=== PATIENT | female | born 1955 ===

== ENCOUNTER 2021-04-11 11:06 | Outpatient (CLI) | payer MEDICARE, OTHER, SELFPAY ==
--- NOTE | 2021-04-11 11:15 | RT.EKG_ITS ---
APPROVED REPORT Exam: Resting ECG Reason for Exam: previous [place] Patient Location: O HR:62 bpm ECG Measurements Heart Rate 62 AXIS SC 206 P -3 QRSd 132 QRS 80 QT 474 T 106 QTc 482 Conclusion Sinus rhythm...normal P axis, V-rate 50- 99 Right bundle branch block...QRSd>120, terminal axis(90,270) Abnormal T, consider ischemia, lateral leads...T <-0.20mV, I aVL V5 V6 Baseline wander in lead(s) II
== END 2021-04-11 11:07 | disposition home or self-care (01) ==
LOC: DI.CARD 11:25
PROVIDERS: Visit Provider Internal Medicine Cardiovascular Disease
DX: I21.3 ST elevation (STEMI) myocardial infarction of unspecified site (principal)
CPT/HCPCS: 93010

== ENCOUNTER → 2021-04-11 11:06 | Outpatient (BNVA) | payer MEDICARE, OTHER, SELFPAY | PROVIDERS: Visit Provider Internal Medicine Cardiovascular Disease | DX: I21.3 ST elevation (STEMI) myocardial infarction of unspecified site (principal); I25.10 Atherosclerotic heart disease of native coronary artery without angina pectoris; E78.5 Hyperlipidemia, unspecified; Z95.818 Presence of other cardiac implants and grafts; I10 Essential (primary) hypertension | CPT/HCPCS: 93005; 99203 ==

== ENCOUNTER 2021-04-17 10:00 | Outpatient (RCR) | payer MEDICARE, OTHER, SELFPAY ==
--- OUTSIDE RECORDS SUMMARY | 2021-04-15 14:54 | XMS_ITS ---
:1955 Author Care Team Providers Name Role Phone GITA LAZO Primary Care Provider [phone] Allergies Code Code System Name Reaction Severity Status Onset NKDA ? Medications Name Status Start Date Stop Date ? ? amlodipine 10 mg tablet Completed ? 04/08/20 21 Take 1 tablet by mouth once daily amlodipine 10 mg-atorvastatin 20 mg tablet Completed ? 04/08/2021 xxx amlodipine 10 mg-benazepril 20 mg capsule Completed ? 04/08/2021 TAKE ONE CAPSULE BY MOUTH ONCE DAILY aspirin 81 mg chewable tablet Active ? No t available Chew 1 tablet every day by oral route. atorvastatin 80 mg tablet Active ? Not av ailable Take 1 tablet every day by oral route at bedtime. benazepril 20 mg tablet Completed ? 04/10/20 21 TAKE ONE TABLET BY MOUTH EVERY DAY chlorthalidone 25 mg tablet Completed 09/23/201703/2017 Tablet: daily codeine 10 mg-guaifenesin 100 mg/5 mL oral liquid Completed 05/31/2012 05/31/2012 5-10 milliliter(s): qhs - at bedtime cyclobenzaprine 10 mg tablet Completed 10/22/201603/2017 1 (one) Tablet Tablet: tid - three times a day Fluarix Quad 7945-9931 (PF) 60 mcg Completed ? 09/02/2018 (15 mcg x 4)/0.5 mL IM syringe Fluzone Quad (PF) 60 mcg Completed ? 12/28/2020 (15 mcg x 4)/0.5 mL IM syringe hydrochlorothiazide 25 mg tablet Completed 10/06/2016 10/06/2016 1 Tablet: daily hydrocodone 5 mg-acetaminophen 300 mg tablet Completed 01/201710/29/2016 1 (one) Tablet: tid - three times a day as needed Klor-Con M10 mEq tablet,extended Active ? Not available release Klor-Con M20 mEq tablet,extended release Completed 016 09/24/2016 1 (one) Tablet: twice a day for 2 days lisinopril 10 mg tablet Active ? Not avai lable Take 1 tablet every day by oral route. lisinopril 20 mg tablet Completed ? 10/26/19 19 Take 1 tablet every day by oral route. lisinopril 5 mg tablet Completed ? 8 losartan 100 mg tablet Completed ? 1 TAKE ONE TABLET BY MOUTH EVERY DAY Macrobid 100 mg capsule Completed 11/08/2010 11/08/19 11 1 Cap: Twice daily metoprolol succinate ER 50 mg tablet,extended release 24 hr Acti ve ? Not available Take 1 tablet every day by oral route. naproxen sodium 550 mg tablet Completed 10/22/2016 1 (one) Tablet Tablet: bid - twice daily nitroglycerin 0.4 mg sublingual tablet Active ? Not available Place 1 tablet as needed by sublingual route as needed. prasugrel 10 mg tablet Active ? Not avail able Take 1 tablet every day by oral route. Provera 10 mg tablet Completed 08/16/2008 09/06/2008 2 (two) Tablet: two times daily Vagifem 10 mcg vaginal tablet Completed 09/05/2013 1 Tablet: Twice weekly valsartan 160 mg tablet Completed ? 12/10/19 19 Take 1 tablet every day by oral route for 30 days. Vitamin C 500 mg capsule,extended release Active ? Not available Take 1 capsule every day by oral route. Vitamin D3 25 mcg (1,000 unit) chewable tablet Active ? Not available Take 1 tablet every day by oral route. Zithromax Z-Jordan 250 mg tablet Completed 02/26/2012 1 Tablet: See note below Problems Name Status Onset Date Source ? Acute ST Segment Elevation Myocardial Active 04/08/2021 ? Infarction Hypokalemia Active ? History Obesity Active ? History Disorder of Olfactory Nerve Active ? Hist ory Hypertensive Disorder Active ? History Pharyngitis Active ? History Posterior Rhinorrhea Active ? History Glossodynia Active ? History Ganglion Cyst Active ? History Urge Incontinence of Urine Active ? Histo ry Increased Frequency of Urination Active ? History Strain of Tendon of Upper Arm Active ? Hi story Strain of Muscle of Upper Limb Active ? H istory Adult Health Examination Active ? History Screening Mammography Active ? History Screening for Cardiovascular System Active ? History Disease Hypogonadism Active ? History Evaluation Procedure Active ? History Clinical Finding Active ? History Procedure by Method Active ? History Pain of Right Shoulder Joint Active ? His tory Finding of Esophagus Active ? History Female Genitalia Finding Active ? History Strain of Muscle of Left Upper Arm Active ? History Strain of Muscle of Left Shoulder Active ? History Procedures Date Name Performed by ? 03/29/2021 Cardiac Catheterization Information not available Notes: with stent placement. 10/04/2012 Colonoscopy Information not avai lable 08/30/2008 Total Abdominal Hysterectomy with Inform ation not available Bilateral Salpingo-oophorectomy 10/19/1986 Delivery Information not avai lable 10/19/1984 [facility]2019 MAMMO, Screening, Tomosynthesis, [facility] (Internal) Bilateral [address] [place] [address] (Work Place) 03/29/2020 MAMMO, Screening, Tomosynthesis, [facility] (Internal) Bilateral [address], [place] [phone] (Work Place) Results Lab Results Date Name Specimen Result Interpretation Description Value Range Status Address ? 03/28/2021 CBC W/ Auto BLD ? Wbc 7.5 10*3/uL 5.0-10.0 F inal [place] Diff 10*3/uL [facility] L ab (Internal) : [address] ? ? BLD ? Rbc 5.11 10*6/uL 4.10-5.30 Final N orth 10*6/uL [facility] L [facility] (Internal) : [address] ? ? BLD ? Hgb 16.0 g/dL 12.0-16.0 Final Nort h g/dL [facility] L ab (Internal) : [address] ? ? BLD High Hct 47.1 % 37.0-47.0 Final [place] % [facility] (Internal) : [address] ? ? BLD ? Mcv 92.2 fL 80.0-96.[address] [facility] L ab (Internal) : [address] ? ? BLD ? Mch 31.3 pg 26.0-32.0 Final [facility] L ab (Internal) : [address] ? ? BLD ? Mchc 34.0 g/dL 31.0-35.[facility] (Internal) : [address] ? ? BLD ? Rdw 12.3 % 11.5-14.5 Final [facility] L ab (Internal) : [address] ? ? BLD ? Plt 238 10*3/uL 130-450 Final Nort h 10*3/uL [facility] L [facility] (Internal) : [address] ? ? BLD ? Anc 4.88 10*3/uL ? Final [facility] L ab (Internal) : [address] ? ? BLD ? Nlr 2.77 0.00-3.20 Final [facility] L ab (Internal) : [address] ? ? BLD ? Neutro 64.7 % 40.0-75.0 Final [facility] L [facility] (Internal) : [address] ? ? BLD ? Lymph 23.3 % 20.0-50.0 Final [facility] L [facility] (Internal) : [address] ? ? BLD High [place] 10.1 % 2.0-10.0 Final [facility] L [facility] (Internal) : [address] ? ? BLD ? Eos 1.1 % 1.0-6.0 % Final [facility] L ab (Internal) : [address] ? ? BLD ? Baso 0.5 % 0.0-1.0 % Final [facility] L [facility] (Internal) : [address] ? ? BLD ? Ig 0.3 % 0.0-0.9 % Final [facility] (Internal) : [address] 03/28/2021 CK S ? Cpk 49 U/L 30-135 Final [place] (Creatine U/L [facility] Total, (Internal) : Serum [address] t 03/28/2021 CMP, Serum S High g/r 163 mg/dL 74-106 Final [facility] or Plasma mg/dL [facility] (Internal) : [address] ? ? S High Bun 32 mg/dL 7-17 Final [facility] mg/dL [facility] (Internal) : [address] ? ? S High Crea 1.10 mg/dL 0.52-1.04 Final Nor th mg/dL [facility] (Internal) : [address] ? ? S ? Ca 10.0 mg/dL 8.4-10.2 Final Nort h mg/dL [facility] (Internal) : [address] ? ? S ? Na 144 mmol/L 137-145 Final [facility] mmol/L [facility] (Internal) : [address] ? ? S Low K 3.3 mmol/L 3.5-5.1 Final [facility] mmol/L [facility] (Internal) : [address] ? ? S ? Cl 104 mmol/L 98-107 Final [place] mmol/L [facility] (Internal) : [address] ? ? S Low Tco2 20.0 mmol/L 22.0-30.0 Final No rth mmol/L [facility] (Internal) : [address] ? ? S High Tp 8.6 g/dL 6.3-8.2 Final [facility] g/dL [facility] (Internal) : [address] ? ? S ? Alb 4.8 g/dL 3.5-5.0 Final [facility] g/dL [facility] (Internal) : [address] ? ? S ? Tbil 0.9 mg/dL 0.2-1.3 Final [facility] mg/dL [facility] (Internal) : [address] ? ? S ? Alp 86 U/L 38-126 Final [facility] U/L [facility] (Internal) : [address] ? ? S ? Alt 19 U/L 9-52 U/L Final [facility] (Sgpt) [facility] (Internal[facility] : [address] ? ? S ? Ast 28 U/L 14-36 U/L Final [facility] (Sgot) [facility] (Internal[facility] : [address] 03/28/2021 Magnesium, S ? mg 1.9 mg/dL 1.6-2.3 Final [place] QN, Serum mg/dL [facility] (Internal) : [address] 03/28/2021 Troponin I, S ? Trop <0.06 NG/mL 0.00-0.06 Final [place] Serum or NG/mL [facility] (Internal) : [address] 03/28/2021 Respiratory FLUID ? Final microbiology ? Fi nal [place] Virus Panel results Coun [facility] L [facility] (Internal) : [address] 03/28/2021 EKG Done by ? No ? ? ? N orth ED observati [facility] Hospital L ab recorded. (Car Manager al): [address] 03/28/2021 EKG Done by ? No ? ? ? N orth ED observati [facility] ab recorded. (Car Manager al): [address] 12/26/2020 BMP, Serum S ? g/r 95 mg/dL 74-106 Final [place] or Plasma mg/dL [facility] (Internal) : [address] ? ? S High Bun 24 mg/dL 7-17 Final North mg/dL [facility] L [facility] (Internal) : [address] ? ? S ? Crea 0.90 mg/dL 0.52-1.04 Final Nor th mg/dL [facility] (Internal) : [address] t ? ? S ? Ca 9.4 mg/dL 8.4-10.2 Final [facility] mg/dL [facility] (Internal) : [address] ? ? S ? Na 140 mmol/L 137-145 Final North mmol/L [facility] L [facility] (Internal) : [address] ? ? S ? K 4.2 mmol/L 3.5-5.1 Final North mmol/L [facility] L [facility] (Internal) : [address] t ? ? S ? Cl 104 mmol/L 98-107 Final [facility] mmol/L [facility] (Internal) : [address] ? ? S ? Tco2 26.0 mmol/L 22.0-30.0 Final No rth mmol/L [facility] (Internal) : [address] 08/27/2019 Lipid S - Chol 193 mg/dL 50-200 Final Nor th Panel, mg/dL [facility] (Internal) : [address] ? ? S - Trig 92 mg/dL 10-150 Final [facility] mg/dL [facility] (Internal) : [address] ? ? S - Hdl 47 mg/dL 40-60 Final [facility] mg/dL [facility] (Internal) : [address] ? ? S - Ldl 128 mg/dL 0-130 Final [facility] mg/dL [facility] (Internal) : [address] 08/27/2019 Glucose, S - g/r 93 mg/dL 74-106 Final No rth Serum or mg/dL [facility] (Internal) : [address] 11/29/2017 Venipunctur BLD ? Venpn* ? ? Final [facility] (Internal[facility] : [address] 11/29/2017 BMP, Serum S ? g/r 96 mg/dL 74-106 Final [facility] or Plasma mg/dL [facility] (Internal) : [address] ? ? S High Bun 18 mg/dL 7-17 Final [facility] mg/dL [facility] (Internal) : [address] ? ? S ? Crea 0.90 mg/dL 0.52-1.04 Final Nor th mg/dL [facility] (Internal) : [address] t ? ? S ? Ca 9.1 mg/dL 8.4-10.2 Final [facility] mg/dL [facility] (Internal) : [address] t ? ? S ? Na 142 mmol/L 137-145 Final [facility] mmol/L [facility] (Internal) : [address] ? ? S ? K 3.7 mmol/L 3.5-5.1 Final [facility] mmol/L [facility] (Internal) : [address] ? ? S ? Cl 105 mmol/L 98-107 Final [facility] mmol/L [facility] (Internal) : [address] ? ? S ? Tco2 27.0 mmol/L 22.0-30.0 Final No rth mmol/L [facility] (Internal) : [address] 10/23/2017 Venipunctur BLD ? Venpn* ? ? Final [facility] (Internal) : [address] 10/23/2017 Lipid S ? Chol 183 mg/dL 50-200 Final Nor th Panel, mg/dL [facility] (Internal) : [address] ? ? S High Trig 208 mg/dL 10-150 Final [facility] mg/dL [facility] (Internal) : [address] ? ? S ? Hdl 43 mg/dL 40-60 Final [facility] mg/dL [facility] (Internal) : [address] t ? ? S ? Ldl 98 mg/dL 0-130 Final [facility] mg/dL [facility] (Internal) : [address] 10/23/2017 BMP, Serum S ? g/r 105 mg/dL 74-106 Final [facility] or Plasma mg/dL [facility] (Internal) : [address] ? ? S High Bun 19 mg/dL 7-17 Final [facility] mg/dL [facility] (Internal) : [address] ? ? S ? Crea 0.90 mg/dL 0.52-1.04 Final Nor th mg/dL [facility] (Internal) : [address] t ? ? S ? Ca 8.9 mg/dL 8.4-10.2 Final [facility] mg/dL [facility] (Internal) : [address] ? ? S ? Na 140 mmol/L 137-145 Final [facility] mmol/L [facility] (Internal) : [address] t ? ? S ? K 4.0 mmol/L 3.5-5.1 Final [facility] mmol/L [facility] (Internal) : [address] t ? ? S ? Cl 104 mmol/L 98-107 Final [place] mmol/L [facility] ab (Internal) : [address] ? ? S ? Tco2 26.0 mmol/L 22.0-30.0 Final No rth mmol/L [facility] ab (Internal) : [address] 09/23/2017 Culture, UR ? Final microbiology ? Final [place] Urine results [facility] (Internal) : [address] 09/23/2017 Urinalysis, UR ? UA-WBC 0-3 [hpf] 0-3 [hpf] F inal [place] Microscopic Count [facility] ab (Internal) : [address] ? ? UR ? UA-RBC 0-2 [hpf] 0-2 [hpf] Final Nor th [facility] ab (Internal) : [address] ? ? UR ABNORMA UA-bacte few [hpf] none seen Final [facility] yasmin [hpf] [facility] ab (Internal) : [address] ? ? UR ABNORMA UA-epith few [hpf] none seen Final [facility] elial [hpf] [facility] (Internal) : [address] ? ? UR ? UA-mucus none seen none seen Final N orth [hpf] [hpf] [facility] (Internal) : [address] 09/23/2017 Urinalysis, UR ? UA-color pale yellow pale Final [place] Dipstick, yellow [facility] (Internal) : [address] ? ? UR ? UA-appea clear clear Final [facility] ab (Internal) : [address] ? ? UR ? UA-gluc negative negative Final Nort h [facility] ab (Internal) : [address] ? ? UR ? UA-bili negative negative Final Nort h [facility] ab (Internal) : [address] ? ? UR ? UA-keton negative negative Final Nor th e [facility] ab (Internal) : [address] ? ? UR ? UA-spec 1.020 1.003-1.0 Final [place] Grav [address] [facility] L ab (Internal) : [address] ? ? UR ? UA-blood negative negative Final [facility] L ab (Internal) : [address] ? ? UR ? UA-pH 5.5 [pH] 4.6-8.0 Final [place] [pH] [facility] (Internal) : [address] ? ? UR ? UA-prot negative negative Final [facility] L ab (Internal) : [address] ? ? UR ? UA-urobi normal normal Final [facility] (Internal) : [address] ? ? UR ? UA-nitri negative negative Final [facility] ab (Internal) : [address] ? ? UR ABNORMA UA-leuk small negative Final [facility] (Internal) : [address] 09/18/2017 Venipunctur BLD ? Venpn* ? ? Final [place] e [facility] (Internal) : [address] 09/18/2017 BMP, Serum S ? g/r 95 mg/dL 74-106 Final [place] or Plasma mg/dL [facility] L ab (Internal) : [address] t ? ? S High Bun 20 mg/dL 7-17 Final [place] mg/dL [facility] (Internal) : [address] ? ? S ? Crea 0.90 mg/dL 0.52-1.04 Final [facility] mg/dL [facility] (Internal) : [address] t ? ? S ? Ca 9.2 mg/dL 8.4-10.2 Final North mg/dL [facility] (Internal) : [address] t ? ? S ? Na 142 mmol/L 137-145 Final [place] mmol/L [facility] (Internal) : [address] t ? ? S Low K 3.4 mmol/L 3.5-5.1 Final [place] mmol/L [facility] L ab (Internal) : [address] t ? ? S ? Cl 102 mmol/L 98-107 Final [place] mmol/L [facility] ab (Internal) : [address] ? ? S ? Tco2 29.0 mmol/L 22.0-30.0 Final No rth mmol/L [facility] (Internal) : [address] Past Encounters 04/10/2021 Hyperlipidemia; Coronary Arteriosclerosi s Alton Avina MD: [address] [place] [phone], Ph. 01/25/2021 Hypertensive Disorder Gita Lazo, FILTRATION SUPERVISOR: [address] [place] [phone], Ph. 12/28/2020 Hypertensive Disorder; Pain in Left Knee Gita Lazo, FILTRATION SUPERVISOR: [address] [place] [phone], Ph. 05/21/2020 Adult Health Examination Gita Lazo FILTRATION SUPERVISOR: [address] [place] [phone], Ph. Social History Tobacco Smoking Status Never Smoker Vaccine List Vaccine Type COVID-19, mRNA, LNP-S, PF, 100 mcg/0.5 m L dose 01/08/2021 02/05/2021 influenza, injectable, quadrivalent 08/07/2018?0.5 mL 08/01/2020 influenza, seasonal, injectable 07/19/2010 07/19/2012 07/19/2015 08/17/2019 influenza, seasonal, injectable, preserv ative free 07/19/2008 09/05/2013 08/04/2017?0.5 mL Td (adult), adsorbed 08/20/2006 Tdap 09/02/2012?0.5 mL zoster live 09/15/2016?0.65 mL zoster recombinant 10/10/2020 Notes: shingrix vial kit at [facility] 10/10/20 Plan of Care Reminders Provider Appointments None ? ? recorded. Lab None ? ? recorded. Referral None ? ? recorded. Procedures None ? ? recorded. Surgeries None ? ? recorded. Imaging None ? ? recorded. Vitals 04/10/2021 10:00AM Follow Up 40 Height Weight BMI Blood Pressure 160.66 cm 99.37 kg 38.5 kg/m2 144/80 mm[Hg] 01/25/2021 02:20PM Follow Up 20 Height Weight BMI Blood Pressure 160.66 cm 107.95 kg 41.8 kg/m2 136/84 mm[Hg] 12/28/2020 01:00PM New Patient 40 Height Weight BMI Blood Pressure 160.66 cm 107.08 kg 41.5 kg/m2 (1) 170/90 mm[H g] (2) 156/82 mm[Hg ] 05/21/2020 10:20AM CPE 40 Height Weight BMI Blood Pressure 160.66 cm 101.56 kg 39.3 kg/m2 134/84 mm[Hg] 08/30/2019 02:00PM Follow Up 20 Height Weight BMI Blood Pressure 160.66 cm 93.62 kg 36.3 kg/m2 132/72 mm[Hg] 12/07/2018 01:20PM Follow Up 40 Height Weight BMI Blood Pressure 160.66 cm 103.74 kg 40.2 kg/m2 122/78 mm[Hg] 10/26/2018 01:40PM Acute 20 Height Weight BMI Blood Pressure 160.66 cm 107.95 kg 41.8 kg/m2 148/82 mm[Hg] 09/14/2018 09:00AM Acute 20 Height Weight BMI Blood Pressure 160.66 cm 114.99 kg 44.5 kg/m2 168/98 mm[Hg] 09/02/2018 01:40PM CPE 40 Height Weight BMI Blood Pressure 160.66 cm 105.91 kg 41 kg/m2 148/94 mm[Hg] 12/01/2017 Weight Blood Pressure 112.54 kg 132/72 mm[Hg] 10/26/2017 Weight Blood Pressure 112.94 kg 142/80 mm[Hg] 09/23/2017 Height Weight Blood Pressure 163.19 cm 109.77 kg 140/88 mm[Hg] 11/11/2016 Blood Pressure 116/72 mm[Hg] 10/22/2016 Height Weight Blood Pressure 161.29 cm 96.62 kg 144/84 mm[Hg] 10/06/2016 Height Weight Blood Pressure 161.29 cm 96.89 kg 132/88 mm[Hg] 09/15/2016 Height Weight Blood Pressure 161.29 cm 96.57 kg 154/84 mm[Hg] 09/10/2015 Height Weight Blood Pressure 161.29 cm 107.32 kg 142/88 mm[Hg] 04/16/2015 Weight Blood Pressure 100.56 kg 132/74 mm[Hg] 03/16/2015 Weight Blood Pressure 101.7 kg 166/90 mm[Hg] 09/07/2014 Height Weight Blood Pressure 161.29 cm 101.02 kg 138/94 mm[Hg] 09/05/2013 Height Weight Blood Pressure 161.29 cm 102.87 kg 140/84 mm[Hg] 04/04/2013 Weight Blood Pressure 95.39 kg 160/90 mm[Hg] 10/01/2012 Weight Blood Pressure 93.94 kg (1) 158/88 mm[Hg] (2) 162/88 mm[Hg] (3) 178/96 mm[Hg] 09/02/2012 Height Weight Blood Pressure 162.56 cm 96.43 kg 154/82 mm[Hg] 05/31/2012 Weight Blood Pressure 102.38 kg 162/88 mm[Hg] 02/26/2012 Weight Blood Pressure 100.65 kg 144/76 mm[Hg] 11/06/2011 Height Weight Blood Pressure 162.56 cm 104.33 kg 146/82 mm[Hg] 03/28/2011 Height Weight Blood Pressure 162.56 cm 100.97 kg 158/80 mm[Hg] 02/26/2011 Height Weight Blood Pressure 162.56 cm 99.88 kg (1) 144/88 mm[Hg] (2) 136/86 mm[Hg] 11/15/2010 Height Weight Blood Pressure 162.56 cm 98.79 kg 150/90 mm[Hg] 10/31/2010 Weight Blood Pressure 98.88 kg 140/80 mm[Hg] 10/24/2008 Height Weight Blood Pressure 162.56 cm 89.36 kg 128/80 mm[Hg] 08/29/2008 Height Weight Blood Pressure 162.56 cm 94.8 kg 130/72 mm[Hg] 08/16/2008 Weight Blood Pressure 95.25 kg 132/78 mm[Hg] 08/20/2007 Weight Blood Pressure 102.97 kg 120/70 mm[Hg] 08/18/2006 Height Weight Blood Pressure 162.56 cm 102.97 kg 126/74 mm[Hg] 07/25/2005 Height Weight Blood Pressure 162.56 cm 102.97 kg 100/68 mm[Hg]
--- OUTSIDE RECORDS SUMMARY | 2021-04-15 14:54 | XMS_ITS | Encounter Summary ---
:1955 Author Care Team Providers Name Role Phone Ran Little Primary Care Provider [phone] Reason for Visit Hypertensive disorder; Telehealth Visit - Patient in the clinic Assessment and Plan Assessment Note This visit was performed virtually using synchronous audio-visual connection via Zoom. As such, the physical examination is necessarily limited. The risks and benefits of the use of this alternative platform were discussed with the parent and verbal consent was obtained. My assessme nt and plans are based on such examination. Further evaluation, including in-person examination, may be needed depending on the response to management or today's recomm endation. 1. Hypertensive disorder poorly controlled now on losar [place] 100mg daily and norvasc 10mg also. She took HCTZ in the past and really hated the fact that she had to pee all the time. She took lisinopril in the past but s topped at 20mg to switch to losartan due to lack of improvement. Pt has been on the ACEI amlodipine/benza pril combo pill 08/07 since 12/28/20. Her BUN was recently elevated at 24. BP is now improved at 136/84. Will recheck the BMP. She does have some dependent edema b ilat that she reports is same as her bas angeline. Advised on compression socks and decreased salt intake. If no improvement then may need to stop the amlodipine. If the BP doesn't improve then go to the amlodipine/benzapril 10/40 dosing. ? BMP, serum or plasma ? amlodipine 10 mg tablet ? benazepril 20 mg tablet Discussion Note: None recorded.Patient educational handouts: No information available. Plan of Care Reminders Provider Appointments Awv 40 07/04/2021 Alton More 11:00AM MD [facility] BMP, Serum 01/25/2021 [facility] or [facility] Lab (Internal) Referral None ? ? recorded. Procedures None ? ? recorded. Surgeries None ? ? recorded. Imaging None ? ? recorded. Medications Name Start Date ? ? aspirin 81 mg chewable tablet ? Chew 1 tablet every day by oral route. atorvastatin 80 mg tablet ? Take 1 tablet every day by oral route at bedtime. lisinopril 10 mg tablet ? Take 1 tablet every day by oral route. metoprolol succinate ER 50 mg tablet,extended release 24 hr ? Take 1 tablet every day by oral route. nitroglycerin 0.4 mg sublingual tablet ? Place 1 tablet as needed by sublingual route as neede d. prasugrel 10 mg tablet ? Take 1 tablet every day by oral route. Vitamin C 500 mg capsule,extended release ? Take 1 capsule every day by oral route. Vitamin D3 25 mcg (1,000 unit) chewable tablet ? Take 1 tablet every day by oral route. Medications Administered None recorded. Vitals Height Weight BMI Blood Pressure 5 ft 3.25 in 237 lbs 16 oz 41.8 kg/m2 136/84 mm[Hg] Results Lab Results None recorded. Allergies Code Code System Name Reaction Severity Onset NKDA ? ? ? Problems Name Status Onset Date Source ? [...] not avai lable 10/19/1984 Delivery Information not avai lable Vaccine List Vaccine Type COVID-19, mRNA, LNP-S, PF, 100 mcg/0.5 m L dose 01/08/2021 02/05/2021 influenza, injectable, quadrivalent 08/07/2018?0.5 mL 08/01/2020 influenza, seasonal, injectable 07/19/2010 07/19/2012 07/19/2015 08/17/2019 influenza, seasonal, injectable, preserv ative free 07/19/2008 09/05/2013 08/04/2017?0.5 mL Td (adult), adsorbed 08/20/2006 Tdap 09/02/2012?0.5 mL zoster live 09/15/2016?0.65 mL zoster recombinant 10/10/2020 Notes: shingrix vial kit at [facility] 10/10/20 Social History Tobacco Smoking Status Never Smoker Alcohol intake Occasional Live alone or with others? with others Notes: Hus band Animal exposure? N Hand Dominance Right Education 12 Blind or serious difficulty seeing N Language Difficulties No Chewing tobacco none Most Recent Tobacco Use Screening 12/07/2018 Hard of hearing or deaf in one or both N ears? Caffeine intake Moderate Notes: 1-2 cups a day Drug Use N Occupation Retired Exercise level Occasional Functional Status No Impairment. Past Encounters 01/25/2021 Hypertensive Disorder Ran Little ASSISTANT PRODUCER: [address] [place] [phone], Ph. 12/28/2020 Hypertensive Disorder; Pain in Left Knee Ran Little ASSISTANT PRODUCER: [address] [place] [phone], Ph. History of Present Illness ? Hypertension F/U_ Reported By: Patient HPI: Medications: taking medicati ons as directed; at last appt 12/28/2020 prescription for Amlodipine 10 mg- Benazepril 20 mg given. Lifestyle: limiting/avoiding salt, not exercising regularly. Associated Symptoms: no dizziness, no lightheaded ness, no chest pain, no shortness of breath, no palpitations, no calf sumaya n with exertion, no headache; patient started that she has no abno rmal BLLE , she currently has 2+ BLLE that imorves when she puts her fe et up, she stated that she usually has that Notes: <p>She really could not tole rate the increased urination on a diuretic. </p> Note: <p>01/25/2021:</p><p>
The patient is {{home in the office*}}. The provider is {{home* in the office}}.

The patient has been positively identified and has consented to a telehealth visit.

The time spent in counseling and coordination of care was 20 min</p>Review of Systems: ROS as noted in the HPI Review of Systems None recorded. Physical Exam ? General Adult Exam (female) Reported By: Patient Constitutional: General Appearance: healthy- appearing, well-nourished Psychiatric: Insight: good judgement. Men rose Status: normal mood, normal affect. Orientation: to time, to tereso ce, to person Head: Head: normocephalic Eyes: Vision: acuity grossly intac t ENMT: Hearing: no hearing loss Neurologic: Gait and Station: normal gai t
--- OUTSIDE RECORDS SUMMARY | 2021-04-15 14:54 | XMS_ITS | Encounter Summary ---
:1955 Author Care Team Providers Name Role Phone Ran Little Primary Care Provider [phone] Reason for Visit None recorded. Assessment and Plan 1. Hyperlipidemia f/u visit w ri in 2 mo ? lipid panel, serum ? CMP, serum or plasma ? CBC w/ auto diff 2. Coronary arteriosclerosis stemi s/p statin, asa/plavix, BB, hubert see cards asymptomatic if new symptoms see us if anginal symptoms come back, go to er and nitro prn Discussion Note: None recorded.Patient educational handouts: No information available. Plan of Care Reminders Provider Appointments Awv 40 07/04/2021 Alton More 11:00AM MD [facility] Lipid 04/10/2021 [facility] ry Panel, Serum Hospital Lab (Internal) ? CMP, Serum 04/10/2021 [facility] or Plasma Hospital Lab (Internal) ? CBC W/ Auto 04/10/2021 [facility] Diff Hospital Lab (Internal) Referral None ? ? recorded. [...] BMI Blood Pressure 5 ft 3.25 in 219 lbs 1 oz 38.5 kg/m2 144/80 mm[Hg] Results Lab Results None recorded. Allergies [...] recombinant 10/10/2020 Notes: shingrix vial kit at [facility] 10/10/20 Social History Tobacco Smoking Status Never [...] Occasional Functional Status No Impairment. Past Encounters 04/10/2021 Hyperlipidemia; Coronary Arteriosclerosi s Alton Avina MD: [address] [place] [phone], Ph. History of Present Illness ? Transition Care Management Reported By: Patient HPI: Timing: date of discharge:. Facility: discharged to:. Follow Up scheduled yes Note: <p>65 year old female being evaluated following [facility] Cardiology discharge. She was transferred from [facility] from [facility] for Anterior STEMI. [facility] hospitalization from 03/28/2021- included Cardiac catherization on 03/29/2021. Pt reports is feeling okay. Pt reports no longer taking benazepril.& lt;/p><p>BP >105 systolic <140 at home</p><p>HR 68-80s </p><p>no chest pain</p><p>brusing/eccymosis from dual AP therapy on trunk/arms</p><p>has appt w cards tomorrow </p><p>pt recent lab work cr ok, blood counts ok </p><p>pt w some upper back pain >24 hr ago now gone</p><p>felt differentthen pain she presented to er w </p><p>relieved w icing</p>Review of Systems: ROS as noted in the HPI Review of Systems None recorded. Physical Exam ? Notes: <p>Gen: NAD, non-labored kev athing
HEENT: normocephalic, atraumatic, pupils equal, round, reactive to li ght, no scleral icterus or injection, no neck lymphadenopathy
Pulm: aranza ar to auscultation bilaterally, no wheeze, crackles, rhonchi
CV: reg ular rate and rhythm, S1, S2 no murmurs
GI: soft, nontender, nondistende d, no rebound or guarding, + bowel sounds throughout
Neuro: alert a nd oriented
MSK: 5/5 strength upper extremities, 5/5 strength lo wer extremities
Ext: no edema bilateral lower extremities
Gait: walks u nassisted, normal gait
Skin: dry, intact
Pysch: mood approp riate</p>
== END 2021-04-17 23:59 | disposition home or self-care (01) ==
LOC: CR 10:00
PROVIDERS: Visit Provider Family Medicine
DX: Z51.89 Encounter for other specified aftercare (principal); I25.2 Old myocardial infarction; Z95.5 Presence of coronary angioplasty implant and graft
CPT/HCPCS: S9472

== ENCOUNTER 2021-05-17 10:00 | Outpatient (RCR) | payer MEDICARE, OTHER, SELFPAY | END 2021-05-18 23:59 | disposition home or self-care (01) | LOC: CR 10:00 | PROVIDERS: Visit Provider Family Medicine | DX: Z51.89 Encounter for other specified aftercare (principal); I25.2 Old myocardial infarction; Z95.5 Presence of coronary angioplasty implant and graft | CPT/HCPCS: S9472 ==

== ENCOUNTER → 2021-05-17 11:13 | Outpatient (BNVA) | payer MEDICARE, OTHER, SELFPAY | PROVIDERS: Visit Provider Internal Medicine Cardiovascular Disease | DX: I25.10 Atherosclerotic heart disease of native coronary artery without angina pectoris (principal); I10 Essential (primary) hypertension; E78.5 Hyperlipidemia, unspecified; Z95.818 Presence of other cardiac implants and grafts | CPT/HCPCS: 99214 ==

== ENCOUNTER 2021-06-17 10:00 | Outpatient (RCR) | payer MEDICARE, OTHER, SELFPAY | END 2021-06-18 23:59 | disposition home or self-care (01) | LOC: CR 10:00 | PROVIDERS: Visit Provider Family Medicine | DX: Z51.89 Encounter for other specified aftercare (principal); I25.2 Old myocardial infarction; Z95.5 Presence of coronary angioplasty implant and graft | CPT/HCPCS: S9472 ==

== ENCOUNTER 2021-07-15 10:00 | Outpatient (RCR) | payer MEDICARE, OTHER, SELFPAY | END 2021-07-18 23:59 | disposition home or self-care (01) | LOC: CR 10:00 | PROVIDERS: Visit Provider Family Medicine | DX: Z51.89 Encounter for other specified aftercare (principal); I25.2 Old myocardial infarction; Z95.5 Presence of coronary angioplasty implant and graft | CPT/HCPCS: S9472 ==

== ENCOUNTER → 2025-08-17 03:58 | Outpatient (CLI) | payer MEDICARE, SELFPAY ==
--- NOTE | 2025-08-17 12:05 | DI.RAD_ITS ---
Exam(s) XR FOOT LT COMPLETE EXAM: XR FOOT LT COMPLETE CLINICAL HISTORY: Left foot pain,m79.672. TECHNIQUE: 2D digital imaging was performed. COMPARISON: No exams were available for comparison FINDINGS: 3 views There is some soft tissue swelling over the dorsal aspect of the foot but no acute fractures evident. There is no diastasis of the Lisfranc joint. Great toe metatarsophalangeal joint appears unremarkable as do the other M TP articulations and midfoot level articulations There is no pes. Moderate size inferior calcaneal spur is noted. There is a large enthesophyte posteriorly at the Achilles insertion site on the posterior calcaneus. IMPRESSION: As above but no acute osseous findings. DATA REPOSITORY: RADIATION DOSE DELIVERED:
== END ==
PROVIDERS: PCP Nurse Practitioner Family; Visit Provider Podiatrist
DX: M79.672 Pain in left foot (principal); M72.2 Plantar fascial fibromatosis; M67.02 Short Achilles tendon (acquired), left ankle; M76.62 Achilles tendinitis, left leg
CPT/HCPCS: 99203; 73630

== ENCOUNTER → 2025-09-21 13:20 | Outpatient (BNVA) | payer MEDICARE, SELFPAY | PROVIDERS: PCP Nurse Practitioner Family; Referring Provider Nurse Practitioner Family; Visit Provider Podiatrist | DX: M72.2 Plantar fascial fibromatosis (principal); M79.672 Pain in left foot; M67.02 Short Achilles tendon (acquired), left ankle; M76.62 Achilles tendinitis, left leg | CPT/HCPCS: 99213 ==